=== PATIENT | male | born 2000 | race Caucasian/White ===

== ENCOUNTER 2021-01-28 17:08 | Emergency (ER) | payer OTHER ==
[2021-01-28 18:35] LABS: HEMOGLOBIN 15.1 gm/dl (14.0-17.5); RED BLOOD COUNT 4.84 M/UL (4.20-5.50)
[2021-01-28 18:59] LABS: BUN/CREATININE RATIO 28 (0-10)
== END 2021-01-28 21:04 | disposition home or self-care (01) ==
LOC: ER1 17:08
PROVIDERS: Physician Assistant
DX: K62.5 Hemorrhage of anus and rectum (principal); Z88.6 Allergy status to analgesic agent; F17.290 Nicotine dependence, other tobacco product, uncomplicated
CPT/HCPCS: 80053; 82150; 83690; 85025; 96374; 96375; 99284

== ENCOUNTER 2022-07-07 00:24 | Emergency (ER) | payer MEDICAID ==
[2022-07-07 01:07] LABS: HEMOGLOBIN 14.6 gm/dl (14.0-17.5); RED BLOOD COUNT 4.71 M/UL (4.20-5.50); WHITE BLOOD COUNT 7.5 K/UL (4.5-11.0)
[2022-07-07 01:26] LABS: BUN/CREATININE RATIO 17 (0-10)
[2022-07-07] MEDS ORDERED: IBUPROFEN600 MG PO (03:00)
[2022-07-07] MEDS ORDERED: ZOFRAN ODT 4 MG4 MG PO (03:00)
== END 2022-07-07 03:53 | disposition home or self-care (01) ==
LOC: ER1 00:24
PROVIDERS: Emergency Medicine
DX: U07.1 COVID-19 (principal)
CPT/HCPCS: 71046; 80053; 81001; 83605; 83690; 85025; 87040; 87081; 87880; 96374; 96375; 99283; J1885; J2405; U0002